=== PATIENT | female | born 1975 | race African-American/Black ===

== ENCOUNTER 2024-02-17 15:40 | Emergency (ER) | payer BC ==
[~2024-02-17] VITALS: Ht 175.3 cm; Wt 69.0 kg
[2024-02-17 15:53] VITALS: O2SAT 99
[2024-02-17] MEDS ORDERED: hydrochlorothiazide (15:53)
[2024-02-17] MEDS ORDERED: NITROGLYCERIN 0.4MG TABLET SL SL PRN ×2 (16:00→19:15)
[2024-02-17 16:45] LABS: BASOPHILS % 0.5 % (0.0-2.0); DIFFERENTIAL COMMENT 0; HEMATOCRIT. 45.4 % (36.0-48.0); LYMPHOCYTES % 10.9 % (20.0-50.0); MEAN CORPUSCULAR HEMOGLOBIN 35.4 pg (28.0-32.0); MEAN CORPUSCULAR HGB CONC 35.3 g/dL (31.0-37.0); MEAN CORPUSCULAR VOLUME 100.3 fL (81.0-99.0); MEAN PLATELET VOLUME 7.5 fl (7.4-10.4); MONOCYTES % 7.2 % (2.0-8.0); NEUTROPHILS % 81.4 % (40.0-76.0); PLATELET 294 x1000/uL (130-400); RED BLOOD CELL COUNT 4.53 mill/uL (4.2-5.4); RED CELL DISTRIBUTION WIDTH 12.8 % (11.6-14.6)
[2024-02-17 16:51] LABS: CHLORIDE 100 mEq/L (98-107); POTASSIUM 3.1 mEq/L (3.5-5.1); SODIUM 134 mEq/L (136-145)
[2024-02-17 16:52] LABS: CARBON DIOXIDE 22 mEq/L (21-32)
[2024-02-17 16:53] LABS: CALCIUM 9.8 mg/dL (8.7-10.4)
[2024-02-17 16:56] LABS: D-DIMER 0.27 mg/L FEU (<0.50); INR 1.1; PARTIAL THROMBOPLASTIN TIME 26.2 sec (23.4-31.0)
[2024-02-17 16:57] LABS: CREATININE 0.9 mg/dL (0.6-1.0); GLUCOSE 97 mg/dL (70-105)
[2024-02-17 16:58] LABS: UREA NITROGEN BLOOD 9 mg/dL (9-23)
[2024-02-17 16:59] LABS: ALANINE AMINOTRANSFERASE 87 IU/L (10-49); ALBUMIN 4.1 g/dL (3.2-4.8); ASPARTATE AMINOTRANSFERASE 95 IU/L (<34)
[2024-02-17 17:00] LABS: BILIRUBIN DIRECT 0.2 mg/dL (<=3.0); BILIRUBIN TOTAL 0.8 mg/dL (0.1-1.0); PROTEIN TOTAL 7.4 g/dL (6.0-8.3)
[2024-02-17] MEDS: ASPIRIN 81MG TABLET PO ONE (17:00)
[2024-02-17] MEDS: SODIUM CHLORIDE 0.9% 1,000 ML IV ONE (17:00)
[2024-02-17 17:01] LABS: TROPONIN I HIGH SENSITIVITY < 4 ng/L (3.0-34)
[2024-02-17] MEDS: POTASSIUM CHLORIDE 20MEQ/PACKET PO NR (17:44)
[2024-02-17] MEDS ORDERED: MORPHINE SULFATE 2 MG/ML INJ (NOT FOR IM USE) IV PRN (19:15)
[2024-02-17] MEDS ORDERED: GUAIFENESIN 200MG/10ML SUGAR FREE UDC PO PRN (19:15)
[2024-02-17] MEDS ORDERED: IPRATROPIUM/ALBUTEROL 0.5-3(2.5)MG/3ML NEB HHN PRN (19:15)
[2024-02-17] MEDS ORDERED: ONDANSETRON HCL 4MG/2ML INJ IV PRN (19:15)
[2024-02-17] MEDS ORDERED: CLONIDINE 0.1MG TABLET PO PRN (19:15)
[2024-02-17] MEDS ORDERED: ACETAMINOPHEN 325MG TABLET PO PRN ×2 (19:15)
[2024-02-17] MEDS ORDERED: MAGNESIUM/ALUMINUM HYDROXIDE/SIMETHICONE 30ML UDC PO PRN (19:15)
[2024-02-17] MEDS ORDERED: DOCUSATE SODIUM 100MG CAPSULE PO PRN (19:15)
[2024-02-17 19:33] LABS: TROPONIN I HIGH SENSITIVITY < 4 ng/L (3.0-34)
[2024-02-17] MEDS ORDERED: NALOXONE HCL 0.4MG/ML VIAL IV PRN (19:45)
[2024-02-17] MEDS: ENOXAPARIN 40MG/0.4ML SYR SUBCUT SCH (20:00)
[2024-02-17] MEDS: METOPROLOL TARTRATE 25MG TABLET PO SCH (21:00)
[2024-02-17] MEDS: ATORVASTATIN CALCIUM 40MG TABLET PO SCH (21:00)
[2024-02-17 21:21] LABS: HCG SCREEN NEGATIVE
[2024-02-17 21:40] VITALS: BP 129/90; PULSE 100; RESP 20; TEMP 36.94740; O2SAT 100
[2024-02-18] MEDS ORDERED: HYDROCHLOROTHIAZIDE 12.5MG CAPSULE PO SCH (09:00)
[2024-02-18] MEDS ORDERED: SERTRALINE HCL 50MG TABLET PO SCH (09:00)
[2024-02-18] MEDS ORDERED: ASPIRIN 81MG EC TABLET PO SCH (09:00)
== END 2024-02-17 21:42 | disposition home or self-care (01) ==
LOC: ER 15:40 → EDBEDREQ 16:00 → ER 21:42
DX: R07.89 Other chest pain (principal); E87.6 Hypokalemia; F41.9 Anxiety disorder, unspecified; I10 Essential (primary) hypertension; Z87.442 Personal history of urinary calculi; Z98.890 Other specified postprocedural states
CPT/HCPCS: 80076; 80048; 84703; 83880; 83690; 85025; 85379; 85610; 85730; 84484; 36415; 71045; 93005; 96360; 99285; Z7610 ×4; J7030